=== PATIENT | female | born 1945 | race Hispanic/Latino ===

== ENCOUNTER 2017-03-20 09:14 | Emergency (ER) | payer MEDICARE ==
[~2017-03-20 09:14] MED LIST: ASPI-1197 PO; BENZ-51 PO; CITA10TA7 PO; DICY10CA13 PO; DILT60TA3 PO; DONE10TA43 PO; GLIM2TAB3 PO; ISOS30TA6 PO; LEVO125 PO; LISI-613 PO; LOPE2TAB26 PO; MEMA5TAB7 PO; ROSU10TA35 PO
[2017-03-20] MEDS ORDERED: ACETAMINOPHEN-CODEINE 300/30MG TAB ONE (09:45)
== END 2017-03-20 10:26 | disposition home or self-care (01) ==
LOC: EDH 09:14
DX: S43.492A Other sprain of left shoulder joint, initial encounter (principal); E11.9 Type 2 diabetes mellitus without complications; E78.5 Hyperlipidemia, unspecified; I10 Essential (primary) hypertension; Z88.0 Allergy status to penicillin; Z88.1 Allergy status to other antibiotic agents; W18.39XA Other fall on same level, initial encounter; Y93.01 Activity, walking, marching and hiking; Y92.89 Other specified places as the place of occurrence of the external cause; Y99.8 Other external cause status
CPT/HCPCS: 73030; 73060

== ENCOUNTER 2017-03-22 10:52 | Observation (INO) | payer MEDICARE ==
[~2017-03-22] VITALS: Ht 152.4 cm; Wt 84.7 kg
[2017-03-22 11:28] LABS: BASOPHILS % (AUTO) 0.4 % (0.0-5.0); HEMATOCRIT 32.5 % (36-48); LYMPHOCYTES % (AUTO) 34.4 % (21.0-51.0); MEAN CORPUSCULAR HEMOGLOBIN 33.2 pg (27.0-33.0); MEAN CORPUSCULAR VOLUME 94.8 fL (79-99); MONOCYTES % (AUTO) 9.6 % (3.0-13.0); NEUTROPHILS % (AUTO) 52.6 % (40.0-77.0); PLATELET COUNT (AUTO) 199 K/uL (130-400); RED BLOOD CELL COUNT(AUTO) 3.43 MIL/uL (4.00-5.50); RED CELL DISTRIBUTION WIDTH 12.9 % (11.0-15.5); WHITE BLOOD COUNT (AUTO) 5.4 K/uL (4.8-10.8)
[2017-03-22 11:31] LABS: CREATININE 1.5 mg/dL (0.5-1.5); POTASSIUM 4.2 mmol/L (3.5-5.1)
[2017-03-22 11:36] LABS: ALBUMIN 3.7 g/dL (3.5-5.0)
[2017-03-22 11:42] LABS: CREATINE KINASE MB 2.2 ng/mL (0.5-3.6)
[2017-03-22] MEDS ORDERED: TRAMADOL HCL 50 MG TABLET ONE (11:42)
[2017-03-22] MEDS ORDERED: ASPIRIN 325 MG TABLET ONE (11:47)
[2017-03-22 11:55] LABS: INR 1.07 (0.85-1.15); PARTIAL THROMBOPLASTIN TIME 26.5 SEC (26.3-35.5); PROTHROMBIN TIME 11.2 SEC (9.6-11.6)
[2017-03-22] MEDS ORDERED: SODIUM CHLORIDE 0.9% 1000ML 1,000 ML IV ONE ×2 (12:28→16:11)
[2017-03-22] MEDS ORDERED: IOPAMIDOL-370 75 ML VIAL IV ONE (13:10)
[2017-03-22] MEDS ORDERED: MORPHINE SULFATE 2 MG/ML 1ML SYG IV PRN (15:15)
[2017-03-22] MEDS ORDERED: HYDRALAZINE HCL 20 MG/ML VIAL IV PRN (15:15)
[2017-03-22] MEDS ORDERED: MORPHINE SULFATE 4 MG/1ML SYG IV PRN (15:15)
[2017-03-22] MEDS ORDERED: ACETAMINOPHEN 325 MG TAB PO PRN ×2 (15:15)
[2017-03-22] MEDS ORDERED: ACETAMINOPHEN-CODEINE 300/30MG TAB PO PRN ×2 (15:15)
[2017-03-22] MEDS ORDERED: ONDANSETRON HCL 4 MG/2 ML VIAL IV PRN (15:15)
[2017-03-22] MEDS ORDERED: POTASSIUM CHLORIDE 20 MEQ ERTAB PO PRN (15:15)
[2017-03-22] MEDS ORDERED: GUAIFENESIN-DM 200/20 MG 10 ML PO PRN (15:15)
[2017-03-22] MEDS ORDERED: POTASSIUM CHLORIDE 10% ELIXIR 20 MEQ/15 ML UDCUP PO PRN (15:15)
[2017-03-22] MEDS ORDERED: LIDOCAINE HCL-MPF 1% 2ML VIAL IVP PRN (15:15)
[2017-03-22] MEDS ORDERED: NITROGLYCERIN 0.4 MG SL TAB SL PRN (15:15)
[2017-03-22] MEDS ORDERED: LACTULOSE 20 GM/30 ML UDCUP PO PRN (15:15)
[2017-03-22] MEDS ORDERED: KETOROLAC TROMETHAMINE 15MG/ML IV PRN (15:15)
[2017-03-22] MEDS: NITROGLYCERIN 1GM/1 INCH PACKET TD SCH ×2 (15:15→22:37)
[2017-03-22] MEDS ORDERED: MAG HYDROX/AL HYDROX/SIMETH ES 30 ML SUSP UDCUP PO PRN (15:15)
[2017-03-22] MEDS ORDERED: POTASSIUM CHLORIDE 20MEQ/100ML 100 ML IV PRN (15:15)
[2017-03-22] MEDS ORDERED: ENOXAPARIN SODIUM 1 MG/KG SQ SCH (15:15)
[2017-03-22] MEDS ORDERED: SODIUM CHLORIDE 0.9% 1000ML 1,000 ML IV SCH (15:21)
[2017-03-22] MEDS ORDERED: KETOROLAC TROMETHAMINE 15MG/ML ONE (16:11)
[2017-03-22] MEDS ORDERED: ENOXAPARIN SODIUM 100 MG/1 ML SQ ONE (16:11)
[2017-03-22] MEDS ORDERED: NITROGLYCERIN 1GM/1 INCH PACKET TD ONE (16:12)
[2017-03-22] MEDS: INSULIN HUMULIN R 100 UNIT/ML 3ML SQ SCH ×2 (16:30→20:56)
[2017-03-22 17:00] VITALS: BP 140/65
[2017-03-22 19:50] VITALS: BP 128/78
[2017-03-22] MEDS: FAMOTIDINE 20MG TAB 20 MG TAB PO SCH (20:56)
[2017-03-22 23:52] LABS: CREATINE KINASE MB 1.7 ng/mL (0.5-3.6)
[2017-03-22 23:53] LABS: TROPONIN I 0.89 ng/mL (0.00-0.06)
[2017-03-22 23:54] VITALS: BP 142/67
[2017-03-23 03:50] VITALS: BP 156/77
[2017-03-23 03:55] LABS: HEMATOCRIT 28.5 % (36-48); MEAN CORPUSCULAR HEMOGLOBIN 33.8 pg (27.0-33.0); MEAN CORPUSCULAR HGB CONC 35.7 g/dL (32.0-36.0); MEAN CORPUSCULAR VOLUME 94.5 fL (79-99); NUCLEATED RED BLOOD CELLS 0.1 % (0.0-0.19); PLATELET COUNT (AUTO) 168 K/uL (130-400); RED BLOOD CELL COUNT(AUTO) 3.01 MIL/uL (4.00-5.50); RED CELL DISTRIBUTION WIDTH 13.1 % (11.0-15.5); WHITE BLOOD COUNT (AUTO) 5.2 K/uL (4.8-10.8)
[2017-03-23 04:09] LABS: CREATININE 1.3 mg/dL (0.5-1.5); POTASSIUM 3.8 mmol/L (3.5-5.1)
[2017-03-23] MEDS ORDERED: DEXTROSE 50%-WATER 50 ML DISP.SYRIN IV ONE (05:32)
[2017-03-23] MEDS: NITROGLYCERIN 1GM/1 INCH PACKET TD SCH (06:04)
[2017-03-23] MEDS ORDERED: GLUCAGON 1MG KIT 1 MG ML IM PRN (06:15)
[2017-03-23] MEDS ORDERED: DEXTROSE 50%-WATER 50 ML DISP.SYRIN IV PRN (06:15)
[2017-03-23] MEDS: INSULIN HUMULIN R 100 UNIT/ML 3ML SQ SCH ×2 (06:36→10:45)
[2017-03-23 07:00] VITALS: BP 168/71
[2017-03-23 07:24] LABS: CREATINE KINASE MB 1.3 ng/mL (0.5-3.6)
[2017-03-23 07:27] LABS: TROPONIN I 0.82 ng/mL (0.00-0.06)
[2017-03-23] MEDS: FAMOTIDINE 20MG TAB 20 MG TAB PO SCH (08:28)
[2017-03-23] MEDS ORDERED: ASPIRIN 325 MG TABLET PO SCH (09:00)
[2017-03-23 11:00] VITALS: BP 182/63
[2017-03-23] MEDS ORDERED: AMLO5TAB2 PO (12:00)
== END 2017-03-23 13:00 | disposition home or self-care (01) ==
LOC: EDH 10:52 → EDHIP 15:15 → 2AH 16:48
PROVIDERS: ADMIT Internal Medicine; ATTEND Internal Medicine
DX: R07.89 Other chest pain (principal); E11.9 Type 2 diabetes mellitus without complications; I25.10 Atherosclerotic heart disease of native coronary artery without angina pectoris; I25.2 Old myocardial infarction; I10 Essential (primary) hypertension; E78.5 Hyperlipidemia, unspecified; E03.9 Hypothyroidism, unspecified; G30.9 Alzheimer's disease, unspecified; F02.80 Dementia in other diseases classified elsewhere, unspecified severity, without behavioral disturbance, psychotic disturbance, mood disturbance, and anxiety; J45.909 Unspecified asthma, uncomplicated; R79.1 Abnormal coagulation profile; Z95.1 Presence of aortocoronary bypass graft; Z95.5 Presence of coronary angioplasty implant and graft
CPT/HCPCS: 36415 ×2; 71045; 71275; 80048; 80053; 82550 ×3; 82553 ×3; 82948 ×4; 83874 ×2; 84443; 84484 ×4; 85025; 85027; 85378; 85610; 85730; 93005 ×2; 96374; 99285; G0378 ×22; J1650; J1885; J7030 ×3; J7070; Q9967

== ENCOUNTER 2017-05-25 09:05 | Observation (INO) | payer MEDICARE ==
[~2017-05-25] VITALS: Ht 167.6 cm; Wt 81.6 kg
[~2017-05-25 09:05] MED LIST changes: +AMLO5TAB2 PO; -DILT60TA3 PO; +ROSU10TA27 PO; -ROSU10TA35 PO
[2017-05-25 10:03] LABS: BASOPHILS % (AUTO) 0.6 % (0.0-5.0); HEMATOCRIT 35.3 % (36-48); LYMPHOCYTES % (AUTO) 43.2 % (21.0-51.0); MEAN CORPUSCULAR HEMOGLOBIN 33.7 pg (27.0-33.0); MEAN CORPUSCULAR HGB CONC 35.9 g/dL (32.0-36.0); MEAN CORPUSCULAR VOLUME 93.7 fL (79-99); MONOCYTES % (AUTO) 8.6 % (3.0-13.0); NEUTROPHILS % (AUTO) 44.6 % (40.0-77.0); PLATELET COUNT (AUTO) 225 K/uL (130-400); RED BLOOD CELL COUNT(AUTO) 3.76 MIL/uL (4.00-5.50); RED CELL DISTRIBUTION WIDTH 13.2 % (11.0-15.5); WHITE BLOOD COUNT (AUTO) 6.4 K/uL (4.8-10.8)
[2017-05-25 10:20] LABS: INR 0.98 (0.85-1.15); PROTHROMBIN TIME 10.3 SEC (9.6-11.6)
[2017-05-25 10:26] LABS: CREATININE 1.5 mg/dL (0.5-1.5); POTASSIUM 4.9 mmol/L (3.5-5.1)
[2017-05-25 10:41] LABS: BILIRUBIN,TOTAL 1.1 mg/dL (0.2-1.0); CREATINE KINASE MB 1.2 ng/mL (0.5-3.6)
[2017-05-25 10:46] LABS: APPEARANCE,URINE Clear (CLEAR); BILIRUBIN,URINE Negative (NEGATIVE); COLOR,URINE Yellow (YELLOW); GLUCOSE, URINE (UA) Negative (NEGATIVE); KETONES,URINE Negative (NEGATIVE); LEUKOCYTE ESTERASE ,URINE Trace (NEGATIVE); NITRATE,URINE Negative (NEGATIVE); OCCULT BLOOD,URINE Negative (NEGATIVE); PROTEIN,URINE Negative (NEGATIVE); UROBILINOGEN,URINE 0.2 mg/dL (0.2-1.0)
[2017-05-25 11:06] LABS: BACTERIA,URINE Rare /HPF (None Seen); RBC,URINE None Seen /HPF (0-1); WBC,URINE 0-1 /HPF (0-1)
[2017-05-25] MEDS ORDERED: ASPIRIN 325 MG TABLET ONE (12:40)
[2017-05-25] MEDS ORDERED: NITROGLYCERIN 1GM/1 INCH PACKET TD ONE (13:07)
[2017-05-25 15:01] VITALS: BP 124/54
[2017-05-25] MEDS ORDERED: CLONIDINE HCL 0.1 MG TABLET PO PRN (15:30)
[2017-05-25] MEDS ORDERED: ONDANSETRON HCL 4 MG/2 ML VIAL IVP PRN (15:30)
[2017-05-25] MEDS ORDERED: LACTULOSE 20 GM/30 ML UDCUP PO PRN (15:30)
[2017-05-25] MEDS ORDERED: ENOXAPARIN SODIUM 40 MG/0.4 ML SYRINGE SQ SCH (15:30)
[2017-05-25] MEDS ORDERED: NITROGLYCERIN 0.4 MG SL TAB SL PRN (15:30)
[2017-05-25] MEDS ORDERED: ACETAMINOPHEN 325 MG TAB PO PRN ×2 (15:30)
[2017-05-25 16:22] VITALS: BP 150/69
[2017-05-25] MEDS ORDERED: GABA-529 PO (17:31)
[2017-05-25 18:17] LABS: CREATINE KINASE MB 1.1 ng/mL (0.5-3.6); TROPONIN I 0.26 ng/mL (0.00-0.06)
[2017-05-25 19:37] VITALS: BP 132/51
[2017-05-25] MEDS ORDERED: HYDRALAZINE HCL 20 MG/ML VIAL IV PRN (22:30)
[2017-05-25] MEDS ORDERED: LIDOCAINE HCL-MPF 1% 2ML VIAL IVP PRN (22:45)
[2017-05-25] MEDS ORDERED: DEXTROSE 50%-WATER 50 ML DISP.SYRIN IV PRN (22:45)
[2017-05-25] MEDS ORDERED: POTASSIUM CHLORIDE 10% ELIXIR 20 MEQ/15 ML UDCUP PO PRN (22:45)
[2017-05-25] MEDS ORDERED: GLUCAGON 1MG KIT 1 MG ML IM PRN (22:45)
[2017-05-25] MEDS ORDERED: POTASSIUM CHLORIDE 20MEQ/100ML 100 ML IV PRN (22:45)
[2017-05-25] MEDS ORDERED: POTASSIUM CHLORIDE 20 MEQ ERTAB PO PRN (22:45)
[2017-05-25 23:25] VITALS: BP 142/67
[2017-05-26 02:05] LABS: CREATINE KINASE MB 0.8 ng/mL (0.5-3.6); TROPONIN I 0.26 ng/mL (0.00-0.06)
[2017-05-26 03:45] VITALS: BP 131/55
[2017-05-26] MEDS ORDERED: LEVOTHYROXINE 25 MCG TABLET PO SCH (06:30)
[2017-05-26] MEDS ORDERED: LEVOTHYROXINE 112 MCG TABLET PO SCH (06:30)
[2017-05-26] MEDS: INSULIN HUMULIN R 100 UNIT/ML 3ML SQ SCH ×2 (06:44→11:23)
[2017-05-26 07:42] VITALS: BP 135/64
[2017-05-26] MEDS ORDERED: AMLODIPINE BESYLATE 5 MG TAB PO SCH (09:00)
[2017-05-26] MEDS ORDERED: CITALOPRAM 20 MG TABLET PO SCH (09:00)
[2017-05-26] MEDS ORDERED: ASPIRIN 81 MG EC TAB PO SCH (09:00)
[2017-05-26] MEDS ORDERED: ISOSORBIDE MONO 30MG TAB SR PO SCH (09:00)
[2017-05-26] MEDS ORDERED: ASPIRIN 81MG TAB.CHEW PO SCH (09:00)
[2017-05-26] MEDS ORDERED: GABAPENTIN 100 MG CAPSULE PO SCH (09:00)
[2017-05-26] MEDS ORDERED: MEMANTINE HCL 5 MG TABLET PO SCH (09:00)
[2017-05-26] MEDS ORDERED: FAMOTIDINE 20MG TAB 20 MG TAB PO SCH (09:00)
[2017-05-26] MEDS ORDERED: GLIMEPIRIDE 2 MG TABLET PO SCH (09:00)
[2017-05-26] MEDS ORDERED: LISINOPRIL 20 MG TABLET PO SCH (09:00)
[2017-05-26 11:20] VITALS: BP 121/58
[2017-05-26] MEDS ORDERED: DONEPEZIL HCL 5 MG TAB PO SCH (21:00)
[2017-05-26] MEDS ORDERED: ATORVASTATIN CALCIUM 20 MG TABLET PO SCH (21:00)
== END 2017-05-26 16:44 | disposition home or self-care (01) ==
LOC: EDH 09:05 → EDHIP 12:20 → 2DH 14:24
PROVIDERS: ADMIT Family Medicine; ATTEND Family Medicine
DX: I10 Essential (primary) hypertension (principal); I25.10 Atherosclerotic heart disease of native coronary artery without angina pectoris; E03.9 Hypothyroidism, unspecified; E11.9 Type 2 diabetes mellitus without complications; I25.2 Old myocardial infarction; E78.5 Hyperlipidemia, unspecified; F03.90 Unspecified dementia, unspecified severity, without behavioral disturbance, psychotic disturbance, mood disturbance, and anxiety; F32.9 Major depressive disorder, single episode, unspecified; Z95.1 Presence of aortocoronary bypass graft; Z88.0 Allergy status to penicillin
CPT/HCPCS: 36415; 70450; 71045; 80053; 81001; 82550; 82553; 82948; 83874; 84484; 85025; 85610; 85730; 93005; 96372; G0378; J1650

== ENCOUNTER 2017-06-12 11:03 | Emergency (ER) | payer MEDICARE ==
[~2017-06-12 11:03] MED LIST changes: -BENZ-51 PO; -DICY10CA13 PO; +GABA-529 PO; -LOPE2TAB26 PO
[2017-06-12 11:22] LABS: BASOPHILS % (AUTO) 0.6 % (0.0-5.0); EOSINOPHILS % (AUTO) 2.3 % (0.0-8.0); HEMATOCRIT 31.6 % (36-48); LYMPHOCYTES % (AUTO) 33.4 % (21.0-51.0); MEAN CORPUSCULAR HEMOGLOBIN 32.7 pg (27.0-33.0); MEAN CORPUSCULAR HGB CONC 34.8 g/dL (32.0-36.0); MEAN CORPUSCULAR VOLUME 94.2 fL (79-99); MONOCYTES % (AUTO) 9.1 % (3.0-13.0); NEUTROPHILS % (AUTO) 54.6 % (40.0-77.0); PLATELET COUNT (AUTO) 227 K/uL (130-400); RED BLOOD CELL COUNT(AUTO) 3.36 MIL/uL (4.00-5.50); RED CELL DISTRIBUTION WIDTH 13.2 % (11.0-15.5); WHITE BLOOD COUNT (AUTO) 6.5 K/uL (4.8-10.8)
[2017-06-12 11:37] LABS: CREATININE 1.6 mg/dL (0.5-1.5); POTASSIUM 4.5 mmol/L (3.5-5.1)
[2017-06-12] MEDS ORDERED: ASPIRIN 325 MG TABLET ONE (11:43)
[2017-06-12 11:53] LABS: ALBUMIN 3.6 g/dL (3.5-5.0); BILIRUBIN,TOTAL 1.7 mg/dL (0.2-1.0); CREATINE KINASE MB 1.4 ng/mL (0.5-3.6); TOTAL PROTEIN, SERUM 6.9 g/dL (6.0-8.3)
[2017-06-12 11:54] LABS: INR 1.02 (0.85-1.15); PARTIAL THROMBOPLASTIN TIME 25.8 SEC (26.3-35.5); PROTHROMBIN TIME 10.7 SEC (9.6-11.6)
== END 2017-06-12 15:57 | disposition home or self-care (01) ==
LOC: EDH 11:03
DX: R07.9 Chest pain, unspecified (principal); I25.10 Atherosclerotic heart disease of native coronary artery without angina pectoris; E11.9 Type 2 diabetes mellitus without complications; E78.5 Hyperlipidemia, unspecified; I10 Essential (primary) hypertension; E07.9 Disorder of thyroid, unspecified; Z88.0 Allergy status to penicillin; Z79.899 Other long term (current) drug therapy
CPT/HCPCS: 36415; 71045; 80053; 82550; 82553; 84484; 85025; 85610; 85730; 93005

== ENCOUNTER → 2018-09-28 | Outpatient (CLI) | payer MEDICARE ==
[~2018-09-28] MED LIST changes: -AMLO5TAB2 PO; +AMLO5TAB9 PO; -ROSU10TA27 PO; +ROSU10TA28 PO
== END | disposition home or self-care (01) ==
LOC: SHCH 11:21
PROVIDERS: ATTEND Internal Medicine Cardiovascular Disease
DX: R06.02 Shortness of breath (principal)
CPT/HCPCS: 93306

== ENCOUNTER → 2018-11-16 | Outpatient (CLI) | payer MEDICARE ==
[~2018-11-16] VITALS: Ht 157.5 cm; Wt 83.0 kg
[~2018-11-16] MED LIST changes: -GLIM2TAB3 PO; +GLIM2TAB4 PO; +REGADENOSON 0.4 MG/5 ML PF SYG IVP SCH
== END | disposition home or self-care (01) ==
LOC: SHCH 08:38
PROVIDERS: ATTEND Internal Medicine Cardiovascular Disease
DX: I20.9 Angina pectoris, unspecified (principal); R06.09 Other forms of dyspnea
CPT/HCPCS: 78452; 93017; 96374; A9500 ×2; J2785

== ENCOUNTER → 2019-03-15 | Outpatient (CLI) | payer MEDICARE ==
[~2019-03-15] MED LIST changes: +GLIM2TAB30 PO; -GLIM2TAB4 PO; -REGADENOSON 0.4 MG/5 ML PF SYG IVP SCH
== END | disposition home or self-care (01) ==
LOC: RAH 11:13
PROVIDERS: ATTEND Family Medicine
DX: R51 Headache (principal)
CPT/HCPCS: 70551

== ENCOUNTER → 2019-06-01 | Outpatient (CLI) | payer MEDICARE | END | disposition home or self-care (01) | LOC: RAH 10:18 | PROVIDERS: ATTEND Family Medicine | DX: R11.2 Nausea with vomiting, unspecified (principal); R10.9 Unspecified abdominal pain | CPT/HCPCS: 78264; A9541 ==

== ENCOUNTER 2019-09-15 19:12 | Inpatient (IN) | payer MEDICARE ==
[~2019-09-15] VITALS: Ht 167.6 cm; Wt 86.6 kg
[2019-09-15] MEDS ORDERED: LEVOFLOXACIN 750 MG/D5W 150 ML 150 ML ONE (19:37)
[2019-09-15 19:49] LABS: BASOPHILS % (AUTO) 0.2 % (0.0-5.0); LYMPHOCYTES % (AUTO) 25.3 % (21.0-51.0); MEAN CORPUSCULAR HEMOGLOBIN 30.9 pg (27.0-33.0); MEAN CORPUSCULAR HGB CONC 31.6 g/dL (32.0-36.0); MEAN CORPUSCULAR VOLUME 97.8 fL (79-99); MONOCYTES % (AUTO) 4.3 % (3.0-13.0); NEUTROPHILS % (AUTO) 69.2 % (40.0-77.0); PLATELET COUNT (AUTO) 322 K/uL (130-400); RED BLOOD CELL COUNT(AUTO) 5.11 MIL/uL (4.00-5.50); RED CELL DISTRIBUTION WIDTH 13.7 % (11.0-15.5)
[2019-09-15 20:06] LABS: WHITE BLOOD COUNT (AUTO) 41.5 K/uL (4.8-10.8)
[2019-09-15 20:25] LABS: BAND NEUTROPHILS % (MANUAL) 3 % (0-2); LYMPHOCYTES % (MANUAL) 13 % (22-44); MAN.DIFF COMMENT-IMPRESSION MANUAL DIFFERENTIAL; MONOCYTES % (MANUAL) 4 % (2-9); SEGMENTED NEUTROPHILS % 80 % (40-70)
[2019-09-15 20:26] LABS: PLATELET MORPHOLOGY COMMENT ADEQUATE
[2019-09-15 20:48] LABS: ALBUMIN 3.2 g/dL (3.5-5.0); BILIRUBIN,TOTAL 1.3 mg/dL (0.2-1.0); CREATININE 5.5 mg/dL (0.5-1.5); TOTAL PROTEIN, SERUM 7.1 g/dL (6.0-8.3)
[2019-09-15 21:03] LABS: POTASSIUM 7.3 mmol/L (3.5-5.1)
[2019-09-15] MEDS ORDERED: SODIUM CHLORIDE 0.9% 100 ML IV ONE ×2 (21:22→23:51)
[2019-09-15] MEDS ORDERED: CALCIUM GLUCONATE 1 GM/10 ML VIAL IV ONE (21:22)
[2019-09-15] MEDS ORDERED: SODIUM POLYSTYRENE SULFONATE 15 GM/60 ML ML ONE (21:51)
[2019-09-15 22:10] LABS: APPEARANCE,URINE Cloudy (CLEAR); BILIRUBIN,URINE Small (NEGATIVE); COLOR,URINE Dark Yellow (YELLOW); GLUCOSE, URINE (UA) >=1000 mg/dL (NEGATIVE); KETONES,URINE Trace mg/dL (NEGATIVE); LEUKOCYTE ESTERASE ,URINE Negative (NEGATIVE); NITRATE,URINE Negative (NEGATIVE); OCCULT BLOOD,URINE Negative (NEGATIVE); PROTEIN,URINE POS 1+ mg/dL (NEGATIVE)
[2019-09-15 23:00] LABS: BACTERIA,URINE Few /HPF (None Seen); MUCUS,URINE Few LPF (None Seen); RBC,URINE 0-1 /HPF (0-1); SQUAMOUS EPITHELIAL CELL,UR 0-2 /HPF (0-2); WBC,URINE 0-1 /HPF (0-1)
[2019-09-15] MEDS ORDERED: DILTIAZEM HCL 5 MG/ML 10 ML VIAL IV ONE (23:12)
[2019-09-15] MEDS ORDERED: DILTIAZEM HCL 125 MG/25 ML VIAL IV ONE (23:50)
[2019-09-16] VITALS (75 sets, daily range): BP systolic 61–140; BP diastolic 27–84
[2019-09-16] MEDS ORDERED: DILTIAZEM 125MG+100 ML NS 125 ML IV SCH (02:00)
--- NOTE | 2019-09-16 03:00 | NUR ---
ADMISSION NOTE 74 YEAR FEMALE PT ADMITTED TO ROOM 210 WITH ACUTE RENAL FAILURE, DKA. PT HAS HISTORY OF DEMENTIA, NO FAMILY WITH PT. PMHX AND PSHX OBTAINED FROM CHART REVIEW. PT NOT RESPONDING VERBAL TO STIMULI, CURRENTLY NOT FOLLOWING COMMANDS. PT CURRENTLY IN A.FIB. PT PENDING HEMODIALYSIS ACCESS AND HEMODIALYSIS. ASSESSMENT COMPLETED, SEE FLOW SHEET.
[2019-09-16] MEDS ORDERED: NOREPINEPHRINE 4MG/NS 250ML 250 ML IV ONE (03:15)
[2019-09-16] MEDS ORDERED: SODIUM BICARB 50MEQ 50ML VIAL ONE (03:15)
[2019-09-16] MEDS ORDERED: SODIUM CHLORIDE 0.9% 1000ML 1,000 ML IV ONE ×2 (03:15→03:19)
[2019-09-16 03:37] LABS: ABG BASE EXCESS -12.8 mmol/L (-2.0-3.0); ABG HCO3 12.3 mmol/L (21.0-28.0); ABG OXYGEN SATURATION 99.4 % (95.0-99.0); ABG PCO2 27 mmHg (32-45)
[2019-09-16] MEDS: INSULIN REGULAR, HUMAN 3ML 100 UNIT in SODIUM CHLORIDE 0.9% 99 ML IV PRN ×4 (04:11→10:16)
[2019-09-16] MEDS: SODIUM BICARB 8.4% 50ML SYRING 150 MEQ in DEXTROSE 5%-WATER 1,000 ML IVP SCH ×2 (04:11→12:14)
[2019-09-16] MEDS ORDERED: NOREPINEPHRINE 4MG/NS 250ML 250 ML IV SCH (05:30)
[2019-09-16] MEDS ORDERED: LEVOFLOXACIN 750 MG/D5W 150 ML 150 ML IV SCH (06:30)
[2019-09-16] MEDS ORDERED: SODIUM CHLORIDE 0.9% 1000ML 2,000 ML IV ONE (08:33)
[2019-09-16] MEDS ORDERED: SODIUM CHLORIDE 0.9% 1000ML 1,000 ML IV SCH (08:45)
[2019-09-16] MEDS ORDERED: SODIUM POLYSTYRENE SULFONATE 15 GM/60 ML ML PO SCH (09:00)
[2019-09-16] MEDS ORDERED: AMIODARONE HCL 900 MG in DEXTROSE 5%-WATER 500 ML IV SCH (09:00)
[2019-09-16] MEDS ORDERED: AMIODARONE HCL 150 MG in DEXTROSE 5%-WATER 100 ML IV SCH (09:00)
[2019-09-16] MEDS ORDERED: AMIODARONE HCL 360 MG in DEXTROSE 5%-WATER 200 ML IV SCH (09:00)
[2019-09-16] MEDS: AMIODARONE HCL 450 MG in DEXTROSE 5%-WATER 250 ML IV SCH ×2 (09:26→16:10)
[2019-09-16 09:46] LABS: HEMATOCRIT 39.4 % (36-48); MEAN CORPUSCULAR HEMOGLOBIN 30.9 pg (27.0-33.0); MEAN CORPUSCULAR HGB CONC 32.7 g/dL (32.0-36.0); MEAN CORPUSCULAR VOLUME 94.5 fL (79-99); PLATELET COUNT (AUTO) 222 K/uL (130-400); RED BLOOD CELL COUNT(AUTO) 4.17 MIL/uL (4.00-5.50); RED CELL DISTRIBUTION WIDTH 13.3 % (11.0-15.5)
[2019-09-16 10:01] LABS: BAND NEUTROPHILS % (MANUAL) 4 % (0-2); CREATININE 4.4 mg/dL (0.5-1.5); LYMPHOCYTES % (MANUAL) 10 % (22-44); MONOCYTES % (MANUAL) 5 % (2-9); POTASSIUM 4.4 mmol/L (3.5-5.1); SEGMENTED NEUTROPHILS % 81 % (40-70)
[2019-09-16 10:02] LABS: MAN.DIFF COMMENT-IMPRESSION MANUAL DIFFERENTIAL; PLATELET MORPHOLOGY COMMENT ADEQUATE
[2019-09-16 10:05] LABS: WHITE BLOOD COUNT (AUTO) 33.2 K/uL (4.8-10.8)
--- NOTE | 2019-09-16 10:30 | NUR ---
CARDIO CONSULT JUDY WEBB CONSULTED FOR NEW ONSET AFIB. MESSAGE LEFT FOR BRADLEY. CALLBACK RECEIVED.
--- NOTE | 2019-09-16 10:42 | NUR ---
CHART CHECK COMPLETED Pt IS A 74 Y.O. FEMALE ADMITTED SECONDARY TO DKA,ARF. Pt HAS A PAST MEDICAL HISTORY SIGNIFICANT FOR DM,HTN,CAD,CABG . NO DIET IN PLACE AT THIS TIME. PLEASE REQUEST FORMAL SKILLED SPEECH/SWALLOW EVALUATION IF Pt PRESENTS WITH +S/S OF ASPIRATION SUCH COUGH RESPONSE, THROAT CLEAR, OR WET VOCAL QUALITY DURING P.O. Addendum: 09/16/19 at [address] Amended: Links added.
--- NOTE | 2019-09-16 10:58 | NUR ---
LYNN PLAN PATIENT IN [facility] ICU UNIT. CALLED DAUGHTER CONRADO ARTHUR PERSON TO NOTIFY. NO ANSWER. RAY WILL CONTINUE TO FOLLOW. Addendum: 09/16/19 at 1059 by DEZ MARTIN RN CM Amended: Links added.
[2019-09-16 11:49] LABS: INR 1.16 (0.85-1.15); PARTIAL THROMBOPLASTIN TIME 24.6 SEC (26.3-35.5); PROTHROMBIN TIME 12.5 SEC (9.6-11.6)
--- NOTE | 2019-09-16 12:10 | NUR ---
CARDIO CALLBACK YANNI MORFIN RETURNED CONSULT. UPDATED ON PT STATUS, CONVERTED TO NSR AT 0957AM. TEAM WILL SIGN OFF.
[2019-09-16] MEDS: SODIUM CHLORIDE 0.9% 1000ML 1,000 ML IV SCH ×2 (12:14→19:17)
[2019-09-16 13:53] LABS: CREATININE,URINE RANDOM 147 mg/dL (30-135); SODIUM,URINE RANDOM 21 mmol/l (40-220)
--- NOTE | 2019-09-16 17:49 | NUR ---
6 FR 3 LUMEN PICC INSERTED TO RIGHT BASILIC VEIN, USING ASEPTIC TECHNIQUE. VEIN WAS EASILY ACCESSED, BUT PICC TOOK EXTENDED TIME TO OBTAIN VPS BULLSEYE, MULTIPLE MANEUVERS DONE UNTIL FINALLY GOT CONFIRMATION. CATHETER TRIMMED TO 43 CM, WITH 38CM INTERNAL AND 5CM EXTERNAL. ALL 3 LUMENS HAVE GOOD BLOOD RETURN AND FLUSHED EASILY AND CLAMPED. ARM CIRCUMFERENCE IS 33CM.
[2019-09-16 18:32] LABS: HEMATOCRIT 41.1 % (36-48); MEAN CORPUSCULAR HEMOGLOBIN 31.1 pg (27.0-33.0); MEAN CORPUSCULAR HGB CONC 33.6 g/dL (32.0-36.0); MEAN CORPUSCULAR VOLUME 92.6 fL (79-99); NUCLEATED RED BLOOD CELLS 0.1 % (0.0-0.19); PLATELET COUNT (AUTO) 168 K/uL (130-400); RED BLOOD CELL COUNT(AUTO) 4.44 MIL/uL (4.00-5.50); RED CELL DISTRIBUTION WIDTH 13.2 % (11.0-15.5); WHITE BLOOD COUNT (AUTO) 21.8 K/uL (4.8-10.8)
--- NOTE | 2019-09-16 18:35 | NUR ---
NOTIFICATION OF MELENA FOUL ODORED, MELENA-LIKE STOOL NOTED. INCREASED GASTRIC SECRETIONS AT LIS APPROX 400ML. NOEL RADIO TELEVISION ANNOUNCER MADE AWARE. OCCULT STOOL, CBC AND NPO ORDERS OBTAINED. ALSO RR IN 25-33S WITH ABNORMAL ABDOMINAL BREATHING. CURRENTLY SATURATING 100% ON 2L NC, PT CONTINUES TO BE SOMNOLENT LOCALIZING TO PAIN AND OPENS EYES AT TIMES. PENDING BIPAP AT BEDSIDE. WILL CONTINUE TO MONITOR.
[2019-09-16 19:21] LABS: BAND NEUTROPHILS % (MANUAL) 21 % (0-2); LYMPHOCYTES % (MANUAL) 19 % (22-44); MAN.DIFF COMMENT-IMPRESSION MANUAL DIFFERENTIAL; MONOCYTES % (MANUAL) 4 % (2-9); SEGMENTED NEUTROPHILS % 56 % (40-70)
[2019-09-17] VITALS (100 sets, daily range): BP systolic 73–154; BP diastolic 32–110
[2019-09-17] MEDS ORDERED: INSULIN HUMULIN R 100 UNIT/ML 3ML ONE (00:10)
[2019-09-17 04:02] LABS: BASOPHILS % (AUTO) 0.3 % (0.0-5.0); EOSINOPHILS % (AUTO) 0.5 % (0.0-8.0); HEMATOCRIT 38.2 % (36-48); LYMPHOCYTES % (AUTO) 20.6 % (21.0-51.0); MEAN CORPUSCULAR HEMOGLOBIN 30.5 pg (27.0-33.0); MEAN CORPUSCULAR HGB CONC 33.2 g/dL (32.0-36.0); MEAN CORPUSCULAR VOLUME 91.6 fL (79-99); MONOCYTES % (AUTO) 3.1 % (3.0-13.0); NEUTROPHILS % (AUTO) 74.7 % (40.0-77.0); NUCLEATED RED BLOOD CELLS 0.1 % (0.0-0.19); PLATELET COUNT (AUTO) 150 K/uL (130-400); RED BLOOD CELL COUNT(AUTO) 4.17 MIL/uL (4.00-5.50); RED CELL DISTRIBUTION WIDTH 13.2 % (11.0-15.5); WHITE BLOOD COUNT (AUTO) 21.4 K/uL (4.8-10.8)
[2019-09-17 04:34] LABS: CREATININE 2.6 mg/dL (0.5-1.5); PHOSPHORUS 1.4 mg/dL (2.5-4.9); POTASSIUM 3.3 mmol/L (3.5-5.1)
--- NOTE | 2019-09-17 07:00 | NUR ---
REPORT RECEIVED FROM BLAIR SHAH NURSE) PRECEPTOR, ASSUMED CARE OF PATIENT. RESTING QUIETLY ON O2 2LNC SATS 100%, HR AFIB RATE 90-100s, PICC LINE RIGHT AC. INFUSING AMIODORONE. FOLLOW WITH ASSESSMENT.
[2019-09-17] MEDS: AMIODARONE HCL 200 MG TABLET PO SCH ×2 (09:00→21:00)
[2019-09-17] MEDS: PANTOPRAZOLE 40 MG/VIAL IVP SCH ×2 (09:00→21:00)
[2019-09-17] MEDS: D5W-1/2 NS/20MEQ KCL 1,000 ML IV SCH ×2 (09:00→18:54)
[2019-09-17] MEDS: AMIODARONE HCL 150 MG in DEXTROSE 5%-WATER 100 ML IV SCH (11:57)
[2019-09-17] MEDS: INSULIN HUMULIN R 100 UNIT/ML 3ML SQ SCH ×2 (12:03→17:04)
[2019-09-17] MEDS ORDERED: DIGOXIN 250 MCG/ML 2ML AMP IV SCH (12:30)
[2019-09-17] MEDS ORDERED: DIGOXIN 250 MCG/ML 2ML AMP ONE (12:45)
[2019-09-17] MEDS ORDERED: PHENYLEPHRINE HCL 50 MG in SODIUM CHLORIDE 0.9% 250 ML IV PRN (13:15)
--- NOTE | 2019-09-17 13:20 | NUR ---
CALLED FOR CARDIOLOGY CONSULT, NO CALL BACK, LEFT MESSAGE WITH ANSWERING SERVICE FOR RECONSULT
[2019-09-17] MEDS: DIGOXIN 250 MCG/ML 2ML AMP IV SCH ×2 (14:38→20:00)
[2019-09-17 16:22] LABS: ABG BASE EXCESS 0.6 mmol/L (-2.0-3.0); ABG HCO3 22.8 mmol/L (21.0-28.0); ABG OXYGEN SATURATION 98.7 % (95.0-99.0); ABG PCO2 30 mmHg (32-45)
--- NOTE | 2019-09-17 17:20 | NUR ---
U/S COMPLETED OF ABD. RESTING QUIETLY NO C/O PAIN WHEN AROUSED. VSS. CONTINUES ON AMIODORONE DRIP, D51/2NS W/20KCL @ 100CC/HR. AND NEOSYNEPHRINE.
--- NOTE | 2019-09-17 17:30 | NUR ---
CLEANED OF LARGE LIQUID DARK STOOL, REPOSITIONED, MITTENS REMOVES AND NEW ARMS BANDS PLACED DUE TO EDEMA ON RIGHT HAND
[2019-09-17] MEDS: DEXTROSE 5%-WATER 1,000 ML IV SCH (20:00)
[2019-09-17] MEDS: INSULIN GLARGINE 100 UNITS/ML 10 ML VIAL SQ SCH (21:00)
[2019-09-17 21:08] LABS: POTASSIUM 5.4 mmol/L (3.5-5.1)
[2019-09-18] VITALS (32 sets, daily range): BP systolic 86–143; BP diastolic 39–104
[2019-09-18] MEDS: INSULIN HUMULIN R 100 UNIT/ML 3ML SQ SCH ×4 (00:56→17:31)
[2019-09-18 04:33] LABS: BASOPHILS % (AUTO) 0.4 % (0.0-5.0); EOSINOPHILS % (AUTO) 0.4 % (0.0-8.0); HEMATOCRIT 33.2 % (36-48); MEAN CORPUSCULAR HEMOGLOBIN 31.1 pg (27.0-33.0); MEAN CORPUSCULAR HGB CONC 32.8 g/dL (32.0-36.0); MEAN CORPUSCULAR VOLUME 94.9 fL (79-99); MONOCYTES % (AUTO) 3.1 % (3.0-13.0); NEUTROPHILS % (AUTO) 77.7 % (40.0-77.0); PLATELET COUNT (AUTO) 94 K/uL (130-400); RED CELL DISTRIBUTION WIDTH 13.1 % (11.0-15.5); WHITE BLOOD COUNT (AUTO) 12.5 K/uL (4.8-10.8)
[2019-09-18 05:13] LABS: ALBUMIN 1.7 g/dL (3.5-5.0); BILIRUBIN,TOTAL 1.3 mg/dL (0.2-1.0); CREATININE 2.4 mg/dL (0.5-1.5); MAGNESIUM 2.1 mg/dL (1.80-2.40); PHOSPHORUS 1.7 mg/dL (2.5-4.9); POTASSIUM 3.7 mmol/L (3.5-5.1); TOTAL PROTEIN, SERUM 4.7 g/dL (6.0-8.3)
[2019-09-18] MEDS: DEXTROSE 5%-WATER 1,000 ML IV SCH ×3 (05:53→22:00)
[2019-09-18] MEDS: INSULIN GLARGINE 100 UNITS/ML 10 ML VIAL SQ SCH ×2 (05:55→21:02)
--- NOTE | 2019-09-18 07:59 | NUR ---
TREVOR WEBB ROUND UPDATED ON PT STATUS, ASSESSMENT, DIAGNOSTICS AND LAB RESULTS. ADDRESSED ELECTROLYTE CORRECTIONS. POC UPDATED. PENDING PCR RESULTS. NEW ORDERS RECEIVED.
[2019-09-18] MEDS ORDERED: POTASSIUM PHOS 15 mMOL+NS250ML 250 ML IV ONE (08:00)
[2019-09-18] MEDS: DIGOXIN 50 MCG/ML NG SCH (08:40)
[2019-09-18] MEDS: CEFTRIAXONE SODIUM 1 GM IVP SCH (08:40)
[2019-09-18] MEDS: PANTOPRAZOLE 40 MG/VIAL IVP SCH ×2 (08:41→21:00)
[2019-09-18] MEDS: AMIODARONE HCL 200 MG TABLET PO SCH ×2 (08:44→21:01)
[2019-09-18] MEDS ORDERED: LEVOFLOXACIN 500 MG/D5W 100 ML 100 ML IV SCH (09:00)
[2019-09-18] MEDS: AMIODARONE HCL 150 MG in DEXTROSE 5%-WATER 100 ML IV SCH (10:38)
--- NOTE | 2019-09-18 13:45 | NUR ---
TRANSFER NOTE TRANSFERRED TO 230. BEDSIDE REPORT GIVEN TO DELFINO EUBANKS. ALL QUESTIONS ANSWERED. NAD NOTED. VSS.
--- NOTE | 2019-09-18 22:00 | NUR ---
PROVIDER COMMUNICATION D5W IVF OUT OF STOCK IN HOSPITAL. PT HAS NG WITH GLUCERNA 1.5 ML 250ML Q6H FEEDS ORDERED. BGS 173. NA 150 PER SWATI DIAS MD, HOLD TUBE FEEDS. PROVIDE FREE WATER 250ML Q4H. CONTINUE BGS Q4H.
[2019-09-19 04:06] VITALS: BP 102/49
[2019-09-19 05:33] LABS: BASOPHILS % (AUTO) 0.3 % (0.0-5.0); EOSINOPHILS % (AUTO) 1.9 % (0.0-8.0); HEMATOCRIT 34.1 % (36-48); LYMPHOCYTES % (AUTO) 25.8 % (21.0-51.0); MEAN CORPUSCULAR HEMOGLOBIN 30.8 pg (27.0-33.0); MEAN CORPUSCULAR HGB CONC 32.6 g/dL (32.0-36.0); MEAN CORPUSCULAR VOLUME 94.7 fL (79-99); MONOCYTES % (AUTO) 4.8 % (3.0-13.0); NEUTROPHILS % (AUTO) 66.2 % (40.0-77.0); PLATELET COUNT (AUTO) 101 K/uL (130-400); RED CELL DISTRIBUTION WIDTH 12.7 % (11.0-15.5); WHITE BLOOD COUNT (AUTO) 9.6 K/uL (4.8-10.8)
[2019-09-19] MEDS: INSULIN HUMULIN R 100 UNIT/ML 3ML SQ SCH ×4 (05:39→18:00)
[2019-09-19 06:00] LABS: ALBUMIN 1.7 g/dL (3.5-5.0); BILIRUBIN,TOTAL 1.5 mg/dL (0.2-1.0); CREATININE 1.7 mg/dL (0.5-1.5); MAGNESIUM 1.1 mg/dL (1.80-2.40); POTASSIUM 3.5 mmol/L (3.5-5.1); TOTAL PROTEIN, SERUM 5.2 g/dL (6.0-8.3)
[2019-09-19] MEDS: INSULIN GLARGINE 100 UNITS/ML 10 ML VIAL SQ SCH ×2 (07:30→21:00)
[2019-09-19 09:11] VITALS: BP 123/58
[2019-09-19] MEDS: DIGOXIN 50 MCG/ML NG SCH (10:19)
[2019-09-19] MEDS: PANTOPRAZOLE 40 MG/VIAL IVP SCH ×2 (10:19→21:00)
[2019-09-19] MEDS: CEFTRIAXONE SODIUM 1 GM IVP SCH (10:19)
[2019-09-19] MEDS: AMIODARONE HCL 200 MG TABLET PO SCH ×2 (10:19→21:00)
[2019-09-19] MEDS: DEXTROSE 5%-WATER 1,000 ML IV SCH (12:00)
[2019-09-19 12:35] VITALS: BP 112/60
--- NOTE | 2019-09-19 13:44 | NUR ---
DC PLAN VISITED WITH PATIENT. PATIENT NOT ABLE TO HEAR OVER THE PHONE. ASKED IF OKAY TO TALK TO DAUGHTER GAVE OKAY CONSENT NURSE IN ROOM. CALLED DAUGHTER CONRADO RATHUR SAID THAT PATIENT HAS DEMENTIA ADVANCED. PATIENT LIVES WITH HER. USES A WALKER. PROVIDER 3 HOURS. TRYING TO GET MORE PROVIDER HOURS AND WHEEL CHAIR AND HOSPITAL BED. SAID WANTS PATIENT TO RETURN HOME. DID NOT WANT SNF. Addendum: 09/19/19 at 1347 by DEZ MARTIN RN CM Amended: Links added.
--- NOTE | 2019-09-19 14:42 | NUR ---
RD NOTIFICATION Pt admitted with DKA, ARF. NPO x [address] Evaluation. PMH of DM, HTN, CAD, CABG, CHF. Obesity Class I. Diarrhea, Alb 1.7. Pt pending Speech therapy evaluation. Recommend advance diet as tolerated to 75gm CCD, Heart Healthy when medical feasible. RD to continue to monitor. Please notify as additional nutrition concerns arise. Thank you.
[2019-09-19] MEDS ORDERED: POTASSIUM PHOS 15 mMOL+NS250ML 250 ML IV PRN (15:45)
[2019-09-19 15:49] VITALS: BP 125/62
--- NOTE | 2019-09-19 16:25 | NUR ---
DYSPHAGIA EVAL COMPLETED.+S/S OF ASPIRATION WITH THIN AND NECTAR-THICK LIQUIDS. RECOMMEND PUREED, HONEY-THICK LIQUIDS; PILLS CRUSHED WITH APPLESAUCE. Addendum: 09/19/19 at 1629 by MARIAN CHAVEZ, [facility] Amended: Links added.
--- NOTE | 2019-09-19 16:39 | NUR ---
family update Daughter Carolina called back and updated on patient condition. All her questions answered
[2019-09-19 20:22] VITALS: BP 130/81
[2019-09-20 00:13] VITALS: BP 139/63
[2019-09-20 04:02] VITALS: BP 125/73
[2019-09-20 05:50] LABS: HEMATOCRIT 33.7 % (36-48); MEAN CORPUSCULAR HEMOGLOBIN 30.9 pg (27.0-33.0); MEAN CORPUSCULAR HGB CONC 32.9 g/dL (32.0-36.0); MEAN CORPUSCULAR VOLUME 93.9 fL (79-99); RED BLOOD CELL COUNT(AUTO) 3.59 MIL/uL (4.00-5.50); RED CELL DISTRIBUTION WIDTH 12.9 % (11.0-15.5); WHITE BLOOD COUNT (AUTO) 5.5 K/uL (4.8-10.8)
[2019-09-20] MEDS: INSULIN HUMULIN R 100 UNIT/ML 3ML SQ SCH ×4 (06:00→17:04)
[2019-09-20 06:30] LABS: MAGNESIUM 1.4 mg/dL (1.80-2.40); PHOSPHORUS 2.5 mg/dL (2.5-4.9)
[2019-09-20] MEDS: INSULIN GLARGINE 100 UNITS/ML 10 ML VIAL SQ SCH ×2 (07:30→20:54)
[2019-09-20 08:54] VITALS: BP 125/68
--- NOTE | 2019-09-20 09:58 | NUR ---
MEDICATIONS CALLED PHARMACY AND SPOKE WITH FARHEEN AND INFORMED HER THAT PROTONIX & DIGOXIN MEDS WERE NOT AVAILABLE AND SHE SAID THAT THEY WILL SEND THE MEDS. INQUIRED ABOUT THE D5W AND SHE SAID THAT MATERIAL MANAGEMENT HANDLES THAT; GAVE THAT DEPT A CALL AND NO ANSWER
[2019-09-20] MEDS ORDERED: DRONABINOL 2.5 MG CAP PO SCH (11:00)
--- NOTE | 2019-09-20 11:26 | NUR ---
RD UPDATE - CALORIE COUNT RN ASSISTED CALORIE COUNT DUE TO COVID ISOLATION PROTOCOL. RN TO ADD FOOD ITEM AND AMOUNT CONSUMED. RD TO COMPLETE NUTRIENT CALCULATIONS. CALORIE COUNT FORM FAXED TO 2A ([id number]), RN NOTIFIED. RD TO FOLLOW UP.
--- NOTE | 2019-09-20 11:31 | NUR ---
DC PLAN SPOKE TO DAUGHTER REFUSED SNF WANTS HOSPITAL BED AND WHEEL CHAIR. SPOKE TO MALIA LARSON REGARDING REFUSAL OF SNF AND EQUIPMENT REQUESTED. SAID STILL WAITING FOR SPEECH EVAL SINCE PATIENT IS NOT EATING WELL. Addendum: 09/20/19 at 1133 by DEZ MARTIN RN CM Amended: Links added.
[2019-09-20] MEDS: PANTOPRAZOLE 40 MG/VIAL IVP SCH ×2 (11:58→20:54)
[2019-09-20] MEDS: MAGNESIUM 2GM PREMIX 50ML 50 ML IV SCH (11:58)
[2019-09-20] MEDS: CEFTRIAXONE SODIUM 1 GM IVP SCH (11:58)
[2019-09-20] MEDS: AMIODARONE HCL 200 MG TABLET PO SCH ×2 (12:13→20:54)
[2019-09-20] MEDS: DIGOXIN 50 MCG/ML NG SCH (12:24)
[2019-09-20 12:42] VITALS: BP 114/74
--- NOTE | 2019-09-20 13:10 | NUR ---
RECOMMEND LONG-TERM ALTERNATE MEANS OF NUTRITION/HYDRATION LOGGING SUPERVISOR FOLLOWED UP WITH NURSE PATIENCE, Pt WITH 0-10% TOTAL INTAKE FOR MEALS. RECOMMEND LONG-TERM ALTERNATE MEANS OF NUTRITION/HYDRATION AT THIS TIME. LOGGING SUPERVISOR WILL CONTINUE TO FOLLOW Pt. LOGGING SUPERVISOR COORDINATED WITH LAURA ARAGON. Addendum: 09/20/19 at 1314 by CADENCE PITTMAN Amended: Links added.
[2019-09-20 15:52] VITALS: BP 113/64
[2019-09-20] MEDS: DRONABINOL 2.5 MG CAP PO SCH (17:04)
--- NOTE | 2019-09-20 18:36 | NUR ---
D5W & STATUS WAS INFORMED THAT THERE IS CURRENTLY NOT ANY AVAILABLE AT THE MOMENT. ATTEMPTED TO CALL DR. FOX TO SEE IF WANTED TO CHANGE MEDICATION. PATIENT BARELY ATE 10% OF FOOD TODAY, BUT HAS SHAMIR ALERT, JUST WITH A DECREASED APPETITE. SPEECH THERAPY INFORMED AND SAID THAT THEY WOULD SPEAK WITH TO GIVE RECOMMENDATION OF POSSIBLE PEG TUBE PLACEMENT. PATIENT STABLE WITH MINIMAL OUTPUT, BUT ONE LARGE BM DURING SHIFT. SPOKE WITH MARIVEL, RECREATIONAL LEADER FOR DR. FOX OFFICE AND SHE SAID THAT SHE WOULD PUT A PAGE OUT TO DR. FOX.
--- NOTE | 2019-09-20 19:01 | NUR ---
MEDS SPOKE WITH DR. FOX AND HE ORDERED TO CHANGE THE D5W TO 1/2NS AT 100CC. NIGHT NURSE RAYMUNDO NOTIFIED.
--- NOTE | 2019-09-20 19:05 | NUR ---
FAMILY UPDATE PATIENT'S DAUGHTER, GURWINDER, CALLED AND RECEIVED UPDATE ABOUT STATUS FOR THE DAY. DAUGHTER SATISFIED AND SAID SHE WILL CALL BACK AGAIN LATER
--- NOTE | 2019-09-20 19:15 | NUR ---
PT STATUS HAND OVER RECEIVED FROM DAY RN. NOC RN NOTED KCL RUNNING AT 42 Ml/HR WITH BAG MADE AT 1600. NOT CHARTED IN EMAR. WILL DC ACCORDING TO PROTOCOL. WILL CONTINUE TO MONITOR.
[2019-09-20 20:00] VITALS: BP 136/67
[2019-09-20] MEDS: 1/2 NORMAL SALINE 1,000 ML IV SCH (20:54)
[2019-09-21] VITALS: BP 132/76
[2019-09-21] MEDS: 1/2 NORMAL SALINE 1,000 ML IV SCH ×3 (00:31→20:28)
[2019-09-21 04:00] VITALS: BP 124/69
[2019-09-21 04:17] LABS: HEMATOCRIT 29.2 % (36-48); MEAN CORPUSCULAR HGB CONC 32.9 g/dL (32.0-36.0); MEAN CORPUSCULAR VOLUME 94.2 fL (79-99); RED BLOOD CELL COUNT(AUTO) 3.1 MIL/uL (4.00-5.50); RED CELL DISTRIBUTION WIDTH 13.2 % (11.0-15.5); WHITE BLOOD COUNT (AUTO) 6.3 K/uL (4.8-10.8)
[2019-09-21 04:27] LABS: CREATININE 1.4 mg/dL (0.5-1.5); MAGNESIUM 1.5 mg/dL (1.80-2.40); POTASSIUM 3.2 mmol/L (3.5-5.1)
[2019-09-21] MEDS: INSULIN HUMULIN R 100 UNIT/ML 3ML SQ SCH ×5 (05:29→20:28)
[2019-09-21] MEDS: MAGNESIUM 2GM PREMIX 50ML 50 ML IV SCH (06:23)
[2019-09-21] MEDS: DRONABINOL 2.5 MG CAP PO SCH ×2 (07:30→16:30)
[2019-09-21] MEDS: INSULIN GLARGINE 100 UNITS/ML 10 ML VIAL SQ SCH ×2 (07:30→20:29)
[2019-09-21 08:00] VITALS: BP 126/62
[2019-09-21] MEDS ORDERED: LIDOCAINE HCL-MPF 1% 2ML VIAL IV PRN (08:30)
[2019-09-21] MEDS: DIGOXIN 50 MCG/ML NG SCH (09:00)
[2019-09-21] MEDS: AMIODARONE HCL 200 MG TABLET PO SCH ×2 (09:00→21:28)
[2019-09-21] MEDS: CEFTRIAXONE SODIUM 1 GM IVP SCH (09:59)
[2019-09-21] MEDS: PANTOPRAZOLE 40 MG/VIAL IVP SCH ×2 (09:59→21:27)
[2019-09-21] MEDS: POTASSIUM CHLORIDE 20MEQ/100ML 100 ML IV PRN ×2 (10:02→18:08)
[2019-09-21 12:42] VITALS: BP 139/47
--- NOTE | 2019-09-21 12:42 | NUR ---
UPDATE- PATIENT'S DAUGHTER UPDATED ON PATIENT STATUS. SHE IS REQUESTING FOR PATIENT TO GO TO [facility] POST DISCHARGE. NOTIFIED PRIMARY NURSE OF REQUEST.
--- NOTE | 2019-09-21 15:07 | NUR ---
NG TUBE NG TUBE HAS BEEN INSERTED. XRAY AT BEDSIDE TO VERIFY PLACEMENT.
--- NOTE | 2019-09-21 15:16 | NUR ---
DC PLAN SPOKE TO DR. MURRAY REGARDING PLAN OF CARE. TRIED TO MODIFY DIET UNABLE TO PROGRESS. SAID WILL NEED A PEG. PATIENT IS COVID POSITIVE AND WILL NEED TO BE NEGATIVE FOR PROCEDURE. RECOMMENDS LTAC UNTIL STRONGER AND NEGATIVE. SPOKE TO DAUGHTER CONRADO ARTHUR. SPOKE TO ABOUT DC PLAN. DECIDED ON LT[facility] GOT MAYRA OVER THE PHONE WITNESSED BY RAHEL BELL. PACKET SENT [facility] NOTIFIED. RAY WILL CONTINUE TO FOLLOW. Addendum: 09/21/19 at 1520 by DEZ MARTIN RN CM Amended: Links added.
[2019-09-21 16:00] VITALS: BP 127/78
--- NOTE | 2019-09-21 16:04 | NUR ---
RD FOLLOW UP - TUBE FEEDING Recommend initiate Glucerna 1.5 @15mls for 5 hrs. Goal rate 50mls/hr. Recommend flushes at 175 Q6hrs. Recommendations faxed to 2A ([phone]), RN notified. *Bolus recs provided for penitentiary feeding as needed* RD to continue to monitor. Please notify as additional nutrition concerns arise. Thank you.
--- NOTE | 2019-09-21 18:09 | NUR ---
START NG TUBE CHARGE NURSE ADRIANA WAS ABLE TO FIND A FEEDING TUBE TO START GLUCERNA 1.5 ON PATIENT. PLACEMENT VERIFIED WITH NURSE LR PRESENT AT BEDSIDE. PATIENT HAS BEEN STARTED ON FEEDING AND WILL CONTINUE TO MONITOR.
[2019-09-21 20:10] VITALS: BP 154/92
--- NOTE | 2019-09-21 23:00 | NUR ---
PATIENT TOLERATING NG TUBE FEEDINGS WITHOUT RISDUAL OR DISTRESS. INCREASED TO 20ML/HR PER ORDER.
[2019-09-22] VITALS (7 sets, daily range): BP systolic 122–153; BP diastolic 56–100
--- NOTE | 2019-09-22 04:00 | NUR ---
PATIENT TOLERATING NG TUBE FEEDINGS GOING AT 20ML/HR. INCREASED TO 25ML/HR PER ODER. GOAL ID 50ML/HR
[2019-09-22 04:45] LABS: HEMATOCRIT 31.3 % (36-48); MEAN CORPUSCULAR HGB CONC 32.9 g/dL (32.0-36.0); MEAN CORPUSCULAR VOLUME 94.3 fL (79-99); RED BLOOD CELL COUNT(AUTO) 3.32 MIL/uL (4.00-5.50); RED CELL DISTRIBUTION WIDTH 13.2 % (11.0-15.5); WHITE BLOOD COUNT (AUTO) 7.3 K/uL (4.8-10.8)
[2019-09-22 05:07] LABS: CREATININE 1.4 mg/dL (0.5-1.5); MAGNESIUM 1.4 mg/dL (1.80-2.40); POTASSIUM 3.6 mmol/L (3.5-5.1)
[2019-09-22] MEDS: INSULIN HUMULIN R 100 UNIT/ML 3ML SQ SCH ×3 (06:00→18:31)
[2019-09-22] MEDS: INSULIN GLARGINE 100 UNITS/ML 10 ML VIAL SQ SCH ×2 (06:26→21:39)
[2019-09-22] MEDS: DRONABINOL 2.5 MG CAP PO SCH ×2 (06:26→16:30)
--- NOTE | 2019-09-22 06:27 | NUR ---
DEEP TISSUE INJURY OBSERVED TO SACRUM ARE IS BLACK AND NOT WEEPING. BARRIER CREAM APPLIED, FOAM DRESSING APPLIED, AND PATIENT REPOSITIONED.
[2019-09-22] MEDS: DIGOXIN 50 MCG/ML NG SCH (09:50)
[2019-09-22] MEDS: PANTOPRAZOLE 40 MG/VIAL IVP SCH ×2 (09:50→21:26)
[2019-09-22] MEDS: MAGNESIUM 2GM PREMIX 50ML 50 ML IV SCH (09:52)
[2019-09-22] MEDS: CEFTRIAXONE SODIUM 1 GM IVP SCH (09:53)
[2019-09-22] MEDS: 1/2 NORMAL SALINE 1,000 ML IV SCH ×2 (09:56→21:46)
[2019-09-22] MEDS: AMIODARONE HCL 200 MG TABLET PO SCH ×2 (09:56→21:26)
--- NOTE | 2019-09-23 | NUR ---
Patient received at start of shift, resting quietly in bed, A/O x 1, follow nurse with eyes but not responding to questions. RUE swollen, 3+ non pitting edema. Arm elevated on pillow. Patient is on NGT feeding Glucerna @ 40ml/hr and is tolerating feed will with no residual. Patient turned and repositioned per protocol. She is in stable condition. Will continue to monitor.
[2019-09-23] MEDS: INSULIN HUMULIN R 100 UNIT/ML 3ML SQ SCH ×5 (00:22→23:46)
[2019-09-23 03:00] VITALS: BP 123/71
[2019-09-23] MEDS: INSULIN GLARGINE 100 UNITS/ML 10 ML VIAL SQ SCH ×2 (05:30→20:20)
[2019-09-23] MEDS: 1/2 NORMAL SALINE 1,000 ML IV SCH ×3 (05:32→21:40)
[2019-09-23 05:39] LABS: BASOPHILS % (AUTO) 0.4 % (0.0-5.0); EOSINOPHILS % (AUTO) 2.1 % (0.0-8.0); HEMATOCRIT 32.3 % (36-48); LYMPHOCYTES % (AUTO) 23.1 % (21.0-51.0); MEAN CORPUSCULAR HEMOGLOBIN 30.5 pg (27.0-33.0); MEAN CORPUSCULAR HGB CONC 32.8 g/dL (32.0-36.0); MEAN CORPUSCULAR VOLUME 93.1 fL (79-99); MONOCYTES % (AUTO) 5.1 % (3.0-13.0); NEUTROPHILS % (AUTO) 66.5 % (40.0-77.0); PLATELET COUNT (AUTO) 131 K/uL (130-400); RED BLOOD CELL COUNT(AUTO) 3.47 MIL/uL (4.00-5.50); RED CELL DISTRIBUTION WIDTH 13.2 % (11.0-15.5)
[2019-09-23 06:03] LABS: ALBUMIN 1.7 g/dL (3.5-5.0); BILIRUBIN,TOTAL 0.6 mg/dL (0.2-1.0); CREATININE 1.3 mg/dL (0.5-1.5); MAGNESIUM 2.3 mg/dL (1.80-2.40); PHOSPHORUS 2.4 mg/dL (2.5-4.9); POTASSIUM 3.7 mmol/L (3.5-5.1); TOTAL PROTEIN, SERUM 5.3 g/dL (6.0-8.3)
--- NOTE | 2019-09-23 06:42 | NUR ---
Right upper arm triple lumen PICC line dressing changed per protocol. Right are is still swollen and elevated on pillow. AM labs drawn post dressing changed, via pink lumen with good blood return. Patient had one large loose stool. Bed bath given, mouth care provided. Turned and repositioned. Patient awake, more alert, and verbal this morning; very soft spoken. She is in stable condition. Following POC.
[2019-09-23 08:00] VITALS: BP 140/78
[2019-09-23] MEDS: PANTOPRAZOLE 40 MG/VIAL IVP SCH ×2 (10:00→20:18)
--- NOTE | 2019-09-23 11:27 | NUR ---
DC PLAN RECEIVED CALL FROM [facility] THAT PATIENT IS ACCEPTED BUT HAS NO BED AVAILABLE ASKED ABOUT [place]. ASKED ABE SAID OKAY FOR [place]. CALLED DAUGHTER SAID NO DOES NOT WANT [place]. LET [facility] FROM [facility] KNOW. WILL TRY TO GET A BED OPEN. Addendum: 09/23/19 at 1129 by DEZ MARTIN RN CM Amended: Links added.
[2019-09-23] MEDS: DRONABINOL 2.5 MG CAP PO SCH ×2 (11:30→17:46)
[2019-09-23] MEDS: CEFTRIAXONE SODIUM 1 GM IVP SCH (11:45)
[2019-09-23] MEDS: DIGOXIN 50 MCG/ML NG SCH (12:00)
[2019-09-23] MEDS: AMIODARONE HCL 200 MG TABLET PO SCH ×2 (12:00→20:18)
[2019-09-23 12:06] VITALS: BP 136/89
[2019-09-23 16:00] VITALS: BP 134/87
--- NOTE | 2019-09-23 18:00 | NUR ---
SHIFT NOTE PATIENT ALERT TO SELF. ABLE TO ANSWER QUESTIONS YES/ NO QUESTIONS. PT. CONT ON GLUCERNA 1.5 @4OML/HR PER NG TUBE. TUBE PATENT AND FLUSHES PT. TOLERATES WELL. YADIEL 3 LUMEN PICC INTACT POSITIVE BLOOD RETURN AND FLUSHES WELL. 1/2 NS INFUSING W/O DIFFICULTY AT 100ML/HR. PT. HAD BM X2 ON THIS SHIFT. PT TURNED Q2HR, SCD'S, GONZALEZ PATENT DRAINING CLEAR YELLOW URINE. CALL DEVICE WITHIN REACH WILL CONT. TO MONITOR.
[2019-09-23 20:44] VITALS: BP 158/72
[2019-09-24] VITALS (50 sets, daily range): BP systolic 70–165; BP diastolic 34–97
--- NOTE | 2019-09-24 00:49 | NUR ---
2000: Tube feeding volume is 40 ml on glucerna 1.5. 20:30 flushed tube feeding with 175 ml of water as ordered 21:00 stopped tube feeding because residual >100 ml yellow 00:00- recheck, residual still greater 100 ml yellow in color. tube feeding continues to be on hold Will continue to monitor residual to see when tube feeding needs to be restarted
--- NOTE | 2019-09-24 03:48 | NUR ---
tube feeding still on hold because tube feeding residual is 100 ml at this time (brown color). will continue to monitor residual
--- NOTE | 2019-09-24 04:23 | NUR ---
luis armando mahoney, preceptor, and i bathed the patient. the patient had 2 bowel movement tonight (loose and yellow in color). the patient is alert to person. patient is having cough and rales. iv fluids of 0.45% normal saline is stopped. will call the hospitalist to let him know that patient needs evaluation and possible chest x-ray to check ng tube and picc line placement again. at 1910 luis armando mahoney checked for placement of the ng tube and we could hear air bolus on the stomach as well as obtain residual from the ng tube. however, the feeding was stopped at the beginning of the shift due to increased amount of residual.
--- NOTE | 2019-09-24 05:03 | NUR ---
paged genie jacob, benchmark for patient's rales and tachycardia of 120 heart rate. i placed patient on 2 liters of oxygen of nasal cannula. pending call back
[2019-09-24] MEDS: FUROSEMIDE 10 MG/ML 2ML VIAL IV SCH (05:20)
--- NOTE | 2019-09-24 05:20 | NUR ---
spoke with genie jacob on the phone and told her about the patient's fluid overload, rales, shortness of breath and she ordered to stop the iv fluids, to do a chest x-ray stat to check for placement of picc line and ng tube. she also ordered 20 mg of lasix iv once and reglan 5 mg iv every 6 hours. she said that it was okay to continue tube feedings after chest x-ray verifies correct placement.
[2019-09-24] MEDS: INSULIN GLARGINE 100 UNITS/ML 10 ML VIAL SQ SCH ×2 (05:21→21:00)
[2019-09-24] MEDS ORDERED: METOCLOPRAMIDE 10 MG/2 ML VIAL ONE (05:22)
[2019-09-24] MEDS: METOCLOPRAMIDE 10 MG/2 ML VIAL IVP SCH ×4 (05:23→21:00)
[2019-09-24] MEDS: DRONABINOL 2.5 MG CAP PO SCH ×2 (05:24→16:41)
[2019-09-24] MEDS: INSULIN HUMULIN R 100 UNIT/ML 3ML SQ SCH ×3 (05:33→17:32)
--- NOTE | 2019-09-24 06:28 | NUR ---
at 0628 i called a rapid response due to patient's diaphoresis, shortness of breath, oxygen saturation of 71% on 2 liters of oxygen and blood pressure 66/52. rapid response team arrived 06:32 including leeanna, charge nurse, Pretty, génesis, RN, Lucinda, RN, and bath house attendant, abdullahi. i spoke with genie jacob on the phone and she ordered 1 liter of Normal saline bolus, levophed drip, ct of the chest, cbc, cmp, abg plus gas, bipap, and transfer to icu room 215. patient's vital signs at 06:25 are blood pressure of 66/52, heart rate of 120, respiration 37, oxygen saturation of 71% on nasal cannula 2 liters, temperature of 99.1, at 06:26 the bipap was started at 0639 risk intern came to draw labs at 06:40 chest x-ray was taken at 06:44 1 liter of NS was started at 0650 levophed was started at 0.3 mcg drip at 06:57 patient transferred to room 215 at 06:42 patient's vital signs were 67/39 blood pressure, heart rate 110, respirations 30, oxygen saturation 68% on bipap, and temperature 98.9 at 06:53 her vitals were 95/45 blood pressure, heart rate of 70, respirations 20, oxygen saturation of 87%, temperature of 99.2 CHA durán, spoke with patient's son at [phone] and made him aware of the situation and he verbalizes understanding. \ I had spoken with genie jacob at 05:30 and she ordered lasix 20 mg IV once, reglan, chest x-ray, and to stop iv fluids because she believed the patient was on fluid overload and possibly picc line or ng tube not in place.
[2019-09-24] MEDS ORDERED: 1/2 NORMAL SALINE 1,000 ML IV ONE (06:44)
[2019-09-24] MEDS ORDERED: NOREPINEPHRINE 4MG/NS 250ML 250 ML IV ONE (06:44)
[2019-09-24] MEDS ORDERED: SODIUM CHLORIDE 0.9% 1000ML 1,000 ML IV SCH (06:45)
[2019-09-24] MEDS ORDERED: NOREPINEPHRINE 4MG/NS 250ML 250 ML IV SCH (06:45)
[2019-09-24 06:53] LABS: HEMATOCRIT 33.3 % (36-48); MEAN CORPUSCULAR HEMOGLOBIN 30.7 pg (27.0-33.0); MEAN CORPUSCULAR HGB CONC 30.9 g/dL (32.0-36.0); MEAN CORPUSCULAR VOLUME 99.4 fL (79-99); PLATELET COUNT (AUTO) 188 K/uL (130-400); RED BLOOD CELL COUNT(AUTO) 3.35 MIL/uL (4.00-5.50); RED CELL DISTRIBUTION WIDTH 13.9 % (11.0-15.5); WHITE BLOOD COUNT (AUTO) 15.7 K/uL (4.8-10.8)
[2019-09-24 07:07] LABS: ALBUMIN 1.7 g/dL (3.5-5.0); BILIRUBIN,TOTAL 0.6 mg/dL (0.2-1.0); CREATININE 1.5 mg/dL (0.5-1.5); POTASSIUM 4.3 mmol/L (3.5-5.1); TOTAL PROTEIN, SERUM 5.2 g/dL (6.0-8.3)
[2019-09-24 07:27] LABS: BAND NEUTROPHILS % (MANUAL) 18 % (0-2); EOSINOPHILS % (MANUAL) 1 % (1-6); LYMPHOCYTES % (MANUAL) 19 % (22-44); MAN.DIFF COMMENT-IMPRESSION MANUAL DIFFERENTIAL; MONOCYTES % (MANUAL) 2 % (2-9); PLATELET MORPHOLOGY COMMENT ADEQUATE; REACTIVE LYMPHOCYTES 4 % (0-0); SEGMENTED NEUTROPHILS % 56 % (40-70)
[2019-09-24] MEDS: AMIODARONE HCL 200 MG TABLET PO SCH ×2 (09:00→21:00)
[2019-09-24] MEDS: CEFTRIAXONE SODIUM 1 GM IVP SCH (09:32)
[2019-09-24] MEDS: PANTOPRAZOLE 40 MG/VIAL IVP SCH ×2 (09:39→21:00)
[2019-09-24] MEDS: DIGOXIN 50 MCG/ML NG SCH (09:48)
[2019-09-24] MEDS ORDERED: VANCOMYCIN PROTOCOL PER PHARMACY IV SCH (10:45)
[2019-09-24] MEDS ORDERED: VANCOMYCIN 1GM+NS 250ML 250 ML IV SCH (10:45)
[2019-09-24] MEDS ORDERED: SODIUM CHLORIDE 0.9% 1000ML 1,000 ML IV ONE (11:00)
[2019-09-24] MEDS ORDERED: ALBUMIN (HUMAN) 25% 100 ML IV PRN (11:00)
[2019-09-24] MEDS ORDERED: IOHEXOL-350 75 ML VIAL IV ONE (11:30)
[2019-09-24] MEDS ORDERED: ALBUMIN (HUMAN) 25% 100 ML IV ONE (11:41)
[2019-09-24] MEDS ORDERED: PHARMACY COMMUNICATION MISC SCH (13:30)
[2019-09-24] MEDS ORDERED: COMPOUND IV REFRIGERATED 1 EACH IVSOLN MISC PRN (13:45)
[2019-09-24] MEDS: ZOSYN 3.375GM+NS 50ML 50 ML IV SCH ×2 (13:55→21:00)
[2019-09-24] MEDS ORDERED: VANCOMYCIN 1.5 GM in SODIUM CHLORIDE 0.9% 250 ML IV ONE (14:00)
--- NOTE | 2019-09-24 14:58 | NUR ---
PATIENT ORDERS PATIENT TACHYPNIC AND NOT TOLERATING LAYING FLAT. HOLDING OFF ON CT CHEST FOR NOW, DR. RICHTER AWARE. RESP ALSO UNABLE TO OBTAIN ABG, NOTIFIED DR. RICHTER'S MACHINE STRIPER, SUGGESTED AN A-LINE BUT MACHINE STRIPER STATED TO HOLD OFF FOR NOW. BOTH MD AND MACHINE STRIPER ROUNDING ON PATIENT SHORTLY AFTER AND AWARE OFF PATIENTS OVERALL STATUS. VERBAL ORDERS FOR LOVENOX 40 MG SUBQ GIVEN PER DR. RICHTER.
[2019-09-24 19:52] LABS: ABG BASE EXCESS -12.3 mmol/L (-2.0-3.0); ABG HCO3 19.7 mmol/L (21.0-28.0); ABG OXYGEN SATURATION 74.3 % (95.0-99.0); ABG PCO2 74 mmHg (32-45)
[2019-09-24] MEDS ORDERED: NOREPINEPHRINE BITARTRATE 16 MG in SODIUM CHLORIDE 0.9% 250 ML IV SCH (20:15)
[2019-09-24] MEDS: CALCIUM GLUCONATE 2 GM in SODIUM CHLORIDE 0.9% 100 ML IV SCH (22:27)
[2019-09-24] MEDS ORDERED: SODIUM CHLORIDE 0.9% 250 ML IV ONE (23:41)
[2019-09-25] VITALS (55 sets, daily range): BP systolic 56–147; BP diastolic 28–99
[2019-09-25] MEDS ORDERED: NOREPINEPHRINE 4MG/NS 250ML 250 ML IV ONE (00:12)
[2019-09-25 04:31] LABS: BASOPHILS % (AUTO) 0.4 % (0.0-5.0); EOSINOPHILS % (AUTO) 0.1 % (0.0-8.0); HEMATOCRIT 29.2 % (36-48); LYMPHOCYTES % (AUTO) 11.8 % (21.0-51.0); MEAN CORPUSCULAR HEMOGLOBIN 30.8 pg (27.0-33.0); MEAN CORPUSCULAR HGB CONC 31.8 g/dL (32.0-36.0); MEAN CORPUSCULAR VOLUME 96.7 fL (79-99); MONOCYTES % (AUTO) 1.7 % (3.0-13.0); NEUTROPHILS % (AUTO) 84.4 % (40.0-77.0); NUCLEATED RED BLOOD CELLS 0.1 % (0.0-0.19); PLATELET COUNT (AUTO) 115 K/uL (130-400); RED BLOOD CELL COUNT(AUTO) 3.02 MIL/uL (4.00-5.50); RED CELL DISTRIBUTION WIDTH 14.5 % (11.0-15.5); WHITE BLOOD COUNT (AUTO) 18.6 K/uL (4.8-10.8)
[2019-09-25 04:33] LABS: CREATININE 1.8 mg/dL (0.5-1.5); MAGNESIUM 1.5 mg/dL (1.80-2.40); PHOSPHORUS 4.9 mg/dL (2.5-4.9); POTASSIUM 4.5 mmol/L (3.5-5.1)
[2019-09-25 04:42] LABS: ABG BASE EXCESS -11.9 mmol/L (-2.0-3.0); ABG HCO3 17.3 mmol/L (21.0-28.0); ABG OXYGEN SATURATION 96.1 % (95.0-99.0); ABG PCO2 52 mmHg (32-45)
[2019-09-25] MEDS: FUROSEMIDE 10 MG/ML 2ML VIAL IV SCH (05:15)
[2019-09-25] MEDS ORDERED: CALCIUM GLUCONATE 1 GM/10 ML VIAL IV ONE (05:54)
[2019-09-25] MEDS: INSULIN HUMULIN R 100 UNIT/ML 3ML SQ SCH ×3 (06:00→12:00)
[2019-09-25] MEDS: ZOSYN 3.375GM+NS 50ML 50 ML IV SCH (06:14)
[2019-09-25] MEDS: DRONABINOL 2.5 MG CAP PO SCH (07:30)
[2019-09-25] MEDS: AMIODARONE HCL 200 MG TABLET PO SCH (08:05)
[2019-09-25] MEDS: CALCIUM GLUCONATE 2 GM in SODIUM CHLORIDE 0.9% 100 ML IV SCH (08:09)
[2019-09-25] MEDS: MAGNESIUM 2GM PREMIX 50ML 50 ML IV SCH (08:10)
[2019-09-25] MEDS: METOCLOPRAMIDE 10 MG/2 ML VIAL IVP SCH ×2 (08:41→11:30)
[2019-09-25] MEDS: DIGOXIN 50 MCG/ML NG SCH (08:42)
[2019-09-25] MEDS: INSULIN GLARGINE 100 UNITS/ML 10 ML VIAL SQ SCH (08:44)
[2019-09-25] MEDS: PANTOPRAZOLE 40 MG/VIAL IVP SCH (08:46)
[2019-09-25] MEDS ORDERED: ENOXAPARIN SODIUM 40 MG/0.4 ML SYRINGE SQ SCH (09:00)
--- NOTE | 2019-09-25 09:00 | NUR ---
PT ORDERS STOP REGLAN PER MALIA, MISSION MANAGER. ADDITIONAL ORDERS FORTHCOMING
[2019-09-25] MEDS ORDERED: SODIUM BICARB 8.4% 50ML SYRING 150 MEQ in DEXTROSE 5%-WATER 1,000 ML IV SCH (10:45)
[2019-09-25] MEDS ORDERED: VANCOMYCIN 1GM+NS 250ML 250 ML IV SCH (14:00)
[2019-09-25] MEDS ORDERED: LORAZEPAM 2 MG/ML 1 ML VIAL IM PRN (15:00)
[2019-09-25] MEDS ORDERED: MORPHINE SULFATE 2 MG/ML 1ML SYG IVP PRN (15:00)
--- NOTE | 2019-09-25 15:07 | NUR ---
COMFORT CARE CONRADO (DAUGHTER) WANTING COMFORT CARE ORDERS IN PLACE FOR HER MOTHER (COMFORT MEASURES ONLY- NO BIPAP/NO LEVOPHED). TELEPHONE CONSENT OBTAINED BY MY SELF AND CHARGE NURSE. NOTIFIED PROVIDERS, COMFORT CARE ORDERS RECEIVED.
--- NOTE | 2019-09-25 15:55 | NUR ---
PATIENT TIME OF 7940, REFER TO DOCUMENTATION PACKET FOR DETAIL.
--- NOTE | 2019-09-25 15:57 | NUR ---
PRONOUNCEMENT CALLED TO ROOM, PT IS NOW COMFORT MEASURES. DAUGHTER AND SON ALLOWED TO COME AND SAY GOODBYE AFTER INSTRUCTION GIVEN REGARDING CONSEQUENCES OF EXPOSURE TO COVID-19 BY CN. THEY VERBALIZED UNDERSTANDING PRIOR TO COMING INTO THE HOSPITAL. THE BIPAP TURNED OFF AND MASK REMOVED WITH DAUGHTER PRESENT, PT IS UNRESPONSIVE, NO RESPIRATIONS, NO HEART TONES, PRONOUNCED AT THIS TIME.
[2019-09-25] MEDS ORDERED: ZOSYN 3.375GM+NS 50ML 50 ML IV SCH (21:00)
== END 2019-09-25 15:57 | disposition expired | DRG 177 ==
LOC: EDH 19:12 → EDHIP 21:28 → 2BH 09-16 02:16 → 2AH 09-18 13:58 → 2CH 09-24 06:42
PROVIDERS: ADMIT Internal Medicine; ATTEND Internal Medicine
PROC: 02HV33Z Insertion of Infusion Device into Superior Vena Cava, Percutaneous Approach (ICD-10-PCS; 2019-09-16)
PROC: B548ZZA Ultrasonography of Superior Vena Cava, Guidance (ICD-10-PCS; 2019-09-16)
PROC: 5A09357 Assistance with Respiratory Ventilation, Less than 24 Consecutive Hours, Continuous Positive Airway Pressure (ICD-10-PCS; principal; 2019-09-24)
DX: U07.1 COVID-19 (principal); E11.10 Type 2 diabetes mellitus with ketoacidosis without coma; J12.89 Other viral pneumonia; I50.33 Acute on chronic diastolic (congestive) heart failure; G93.41 Metabolic encephalopathy; J96.01 Acute respiratory failure with hypoxia; N17.9 Acute kidney failure, unspecified; K92.2 Gastrointestinal hemorrhage, unspecified; I13.0 Hypertensive heart and chronic kidney disease with heart failure and stage 1 through stage 4 chronic kidney disease, or unspecified chronic kidney disease; E87.0 Hyperosmolality and hypernatremia; Z66 Do not resuscitate; I48.91 Unspecified atrial fibrillation; E87.5 Hyperkalemia; R62.7 Adult failure to thrive; N18.9 Chronic kidney disease, unspecified; F03.90 Unspecified dementia, unspecified severity, without behavioral disturbance, psychotic disturbance, mood disturbance, and anxiety; I25.10 Atherosclerotic heart disease of native coronary artery without angina pectoris; E86.9 Volume depletion, unspecified; E11.22 Type 2 diabetes mellitus with diabetic chronic kidney disease; D64.9 Anemia, unspecified; Z68.30 Body mass index [BMI] 30.0-30.9, adult; Z95.1 Presence of aortocoronary bypass graft; Z79.899 Other long term (current) drug therapy; Z79.82 Long term (current) use of aspirin; Z79.84 Long term (current) use of oral hypoglycemic drugs; Z88.0 Allergy status to penicillin; Z83.3 Family history of diabetes mellitus; Z82.49 Family history of ischemic heart disease and other diseases of the circulatory system; Z82.0 Family history of epilepsy and other diseases of the nervous system; Z82.5 Family history of asthma and other chronic lower respiratory diseases
CPT/HCPCS: 36415; 36569; 36600; 71045; 74176; 76700; 76770; 80048; 80053; 81001; 82140; 82270; 82330; 82435; 82570; 82803; 82947; 82948; 83605; 83690; 83735; 83880; 84100; 84132; 84145; 84295; 84300; 85018; 85025; 85027; 85610; 85730; 87040; 87324; 87426; 92610; 93005; 93306; 94660; 99291; C1751; C9113; G0378; J0282; J0610; J0696; J1160; J1650; J1815; J1940; J1956; J2370; J2543; J2765; J3370; J3475; J3480; J3490; J7030; J7050; J7060; J7070; P9046; Q0167; Q9967; U0003